=== PATIENT | male | born 2000 | race African-American/Black ===

== ENCOUNTER 2020-05-13 00:57 | Emergency (ER) | payer OTHER ==
[~2020-05-13] VITALS: Ht 180.3 cm; Wt 88.1 kg
[2020-05-13] MEDS ORDERED: diazePAM 5MG TABLET PO ONE (01:30)
[2020-05-13] MEDS ORDERED: KETOROLAC TROMETHAMINE 10 MG TAB PO ONE (01:30)
[2020-05-13] MEDS: NS 1,000 ML IV SCH ×2 (02:09→03:20)
[2020-05-13] MEDS: propofoL 200 MG/20 ML VIAL IV PRN ×7 (02:17→03:26)
[2020-05-13] MEDS ORDERED: propofoL 200 MG/20 ML VIAL IV ONE ×4 (02:19→02:27)
[2020-05-13 03:32] VITALS: O2SAT 100
[2020-05-13 04:25] VITALS: BP 136/73
--- NOTE | 2020-07-05 14:02 | RO ---
OPERATIVE NOTE DATE OF OPERATION: 05/13/2020 PREOPERATIVE DIAGNOSIS: Dislocated mandible. POSTOPERATIVE DIAGNOSIS: Dislocated mandible. PROCEDURE: Reduction of dislocated mandible. SURGEON: Yovanny Clay DMD. COMMUNITY THE[employer] ACTOR: None. ANESTHESIA: Consciousness sedation. SPECIMENS: None. DESCRIPTION OF PROCEDURE Reduction of dislocated mandible performed in the ED under Consciousness Sedation Yovanny Clay DMD MTDD
== END 2020-05-13 04:55 | disposition home or self-care (01) ==
LOC: M ED 00:57
DX: S03.01XA Dislocation of jaw, right side, initial encounter (principal); X58.XXXA Exposure to other specified factors, initial encounter; Y92.89 Other specified places as the place of occurrence of the external cause; Z77.098 Contact with and (suspected) exposure to other hazardous, chiefly nonmedicinal, chemicals

== ENCOUNTER 2021-06-07 13:04 | Emergency (ER) | payer OTHER ==
[~2021-06-07] VITALS: Ht 180.3 cm; Wt 87.8 kg
[2021-06-07] MEDS ORDERED: diazePAM 10MG/2ML SYRINGE (J3360 PER 5MG) IV ONE (14:25)
[2021-06-07] MEDS ORDERED: propofoL 200 MG/20 ML VIAL IV.PROC PRN ×2 (14:45→16:10)
[2021-06-07] MEDS ORDERED: NS 1,000 ML IV SCH (14:45)
[2021-06-07] MEDS ORDERED: KETAMINE HCL 200 MG/20 ML VIAL IV ONE (14:45)
[2021-06-07] MEDS ORDERED: KETOROLAC 30 MG/ML 1ML VIAL IV ONE (16:35)
[2021-06-07 19:26] VITALS: BP 128/76
== END 2021-06-07 19:44 | disposition home or self-care (01) ==
LOC: M ED 13:04
DX: S03.00XA Dislocation of jaw, unspecified side, initial encounter (principal); X58.XXXA Exposure to other specified factors, initial encounter; Y92.89 Other specified places as the place of occurrence of the external cause
CPT/HCPCS: 21480; 70110; 93041; 94760; 96361; 96374; 99152; 99291; J3360